=== PATIENT | male | born 1950 | race Caucasian/White ===

== ENCOUNTER 2016-12-04 13:10 | Inpatient (IN) ==
[2016-12-04] MEDS ORDERED: *HR* OxyCODONE Immed Rel 5 MG TABLET PO PRN (16:39)
[2016-12-04] MEDS ORDERED: Naloxone 0.4 MG/ML INJ IVP PRN (16:39)
[2016-12-04] MEDS ORDERED: Acetaminophen 325 MG TABLET PO PRN (16:39)
[2016-12-04] MEDS ORDERED: Stomatitis Mixture 5 ML UDC PO PRN (16:41)
--- NOTE | 2016-12-04 16:43 | Internal Med History&Physical ---
Date of Encounter: 12/04/16 Time of Encounter: 16:00 Assessment and Plan (1) Nausea and vomiting Current visit: Yes Status: Acute Likely secondary to chemotherapy. Continue supportive care with IV hydration, when necessary Zofran and Phenergan. Clear liquids as tolerated. Nutrition consult to initiate PEG feeds. CT abdomen/pelvis shows moderate amount of stool in the colon with no other acute findings. Patient is noted to have acute leukocytosis with bandemia, which is likely related to recent chemotherapy and Neulasta. Continue to monitor. Consulted oncology, follow-up recommendations. 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 Recent PET/CT showed invasion and spread into parapharyngeal space and other dictations. Currently on chemoradiation. Oncology consult. (3) Bronchiolitis Current visit: Yes Status: Acute CT abdomen shows bilateral bronchiolitis. Given his cough and leukocytosis, will start on IV Zithromax and. Patient does not appear septic. Does have a lactate level of 3.1. Continue IV hydration and trend lactate. Internal Medicine - H&P: HPI Chief complaint: Nausea, vomiting Admitted From: Emergency Dept Plans for Post Hospital Care: Home History of present illness: Mr. Cuello is a 66 year old male with history of left tonsillar squamous cell carcinoma with local invasion, presents with complaints of persistent nausea and vomiting. He was diagnosed with cancer about 6 months ago, follows with , and has been started on radiation, followed by chemotherapy, that was started on 12/02/16. He began having refractory nausea and nonbloody bilious emesis following this associated with poor oral intake. He did receive a PEG tube in September 2016, however he does not use his tube feeds regularly, especially not in the last 2-3 days. He has generalized weakness and fatigue and is noted to be very uncomfortable. Denies fever, chills, abdominal pain or diarrhea. He is noted to have intermittent dry cough, likely due to vomiting. Past Med Surg Social Fam HX - Past Medical History Medical history: arthritis, cancer (Squamous cell carcinoma of the left tonsil) Psychiatric history: no psych history - Past Surgical History Surgical History: other (Left tonsillectomy, PEG tube placement) - Social History Smoking Status: Former smoker (Quit smoking about 20 years ago) Smokeless Tobacco Status: No Alcohol use: none (Quit alcohol about 20 years ago) Drug use: marijuana Occupational status: disabled Current living situation: Home - Independent Activity Level: Independent ambulation Recent Out of Country Travel Within the Last 8 Weeks: No Exposure or Possible Exposure to Illness During Travel: No - Family History Mother Hx Family Cancer: Yes (Lung and cervical cancer) Internal Medicine - H&P: Meds Lactose-Reduced Food [Ensure Plus] 1 bottle PO TID #90 can 06/27/16 [Rx] Dicyclomine [Bentyl] 10 mg PO QID 08/02/16 [History] OxyCODONE Oral Soln [OxyCODONE ORAL SOLN] 30 mg PO Q6H PRN 08/02/16 [History] Promethazine [Phenergan] 12.5 mg PO Q6HR PRN 08/02/16 [History] Omeprazole [PriLOSEC] 20 mg PO DAILY #30 cap 08/20/16 [Rx] Stomatitis Mixture 5 ml PO Q4H PRN #240 mls 08/20/16 [Rx] Magic Mouthwash [Magic Mouthwash BLM] 10 ml PO QID PRN #240 ml 11/20/16 [Rx] Fentanyl [Duragesic] 1 each TD Q3D 11/28/16 [History] 3 Allergy/AdvReac Type Severity Reaction Status Date / Time codeine AdvReac Rash Verified 11/28/16 08:22 phenylbutazone AdvReac Rash Verified 11/28/16 08:22 [From Butazolidin] All Systems PM: A 10-system review of systems was performed and is negative for pertinent findings except as documented above in the HPI. - Constitutional Constitutional: fatigue, weakness, no chills, no fever(s), no night sweats - EENT Eyes: no change in vision, no discharge, no pain, no photophobia Ears: no ear discharge, no ear pain, no tinnitus Nose, mouth and throat: no dysphagia, no nasal discharge, no neck pain, no sore throat - Cardiovascular Cardiovascular ROS IM: no chest pain, no diaphoresis, no dyspnea, no lightheadedness, no palpitations, no syncope - Respiratory Respiratory: cough - Gastrointestinal Gastrointestinal: nausea, vomiting - Musculoskeletal Musculoskeletal ROS IM: no numbness, no tingling - Integumentary Integumentary IM: no rash, no unusual bruising - Neurological Neurological ROS: no confusion, no convulsions, no focal weakness, no numbness, no tingling, no tremor(s) - Hematologic/Lymphatic Hematologic/Lymphatic: no easy bruising - Constitutional Vitals: Temp Pulse Resp BP Pulse Ox 98.1 F 62 16 135/69 95 12/04/16 15:05 12/04/16 15:05 12/04/16 15:05 12/04/16 15:05 12/04/16 15:05 General appearance: Present: cachectic, mild distress, A&O X 3, loss of weight, answers questions appropriately - Respiratory Respiratory exam: Present: CTAB. Absent: accessory muscle use, rales, rhonchi, wheezes - Cardiovascular Cardiovascular exam: Present: RRR, +S1, +S2. Absent: diastolic murmur, gallop, rubs, systolic murmur - GI/Abdominal GI/Abdominal exam: Present: normal bowel sounds, soft (Scaphoid abdomen with PEG tube in place), no peritoneal signs. Absent: distended, tenderness - Extremities Exam Extremities exam: Present: full ROM, warm, radial pulses palpable and symmetrical. Absent: calf tenderness, cyanotic, pedal edema - Neurological Exam Neurological exam: Present: CN II-XII intact, oriented X3, no focal deficits. Absent: pronater drift, facial droop, speech deficit - Skin Skin exam: Present: dry, intact
[2016-12-04] MEDS ORDERED: *HR* FentaNYL PATCH 50 MCG PATCH TD SCH (17:00)
[2016-12-04] MEDS ORDERED: D5% in 0.9% NACL 1,000 ML IVC SCH (17:30)
[2016-12-04] MEDS: Azithromycin 500 MG in D5% in Water 250 ML IVPB SCH (17:58)
[2016-12-04] MEDS ORDERED: NON-FORMULARY MEDICATION 1 EACH EACH (Lactose-Reduced Food [Ensure Plus] 1 BOTTLE) PO SCH (21:00)
[2016-12-04] MEDS: *HR* Heparin 5,000 UNIT/ML VIAL SQ SCH (21:41)
[2016-12-04] MEDS: Ondansetron 4 MG/2 ML VIAL IVP PRN (21:41)
[2016-12-04] MEDS: *HR* Morphine 2 MG/ML SYRINGE IVP PRN (22:10)
[2016-12-04] MEDS: Magic Mouthwash 10 ML UD Cup PO PRN (23:37)
[2016-12-05 05:11] LABS: Mean Platelet Volume 10.9 fL (9.4-12.4)
[2016-12-05 05:13] LABS: Hematocrit 38.9 % (37.5-50.1); Hemoglobin 12.6 g/dL (12.9-16.9); Mean Corpuscular HGB Conc 32.4 g/dL (31.6-35.5); Mean Corpuscular Hemoglobin 27.9 pg (28.0-33.3); Mean Corpuscular Volume 86.1 fL (83.0-100.0); Platelet Count 249 K/mcL (140-400); Red Blood Count 4.52 M/mcL (4.19-5.50); Red Cell Distribution Width 12.9 % (11.5-14.5)
[2016-12-05 05:24] LABS: BUN/Creatinine Ratio 20 (6-26); Blood Urea Nitrogen 17 mg/dL (8-26); Calcium 8.9 mg/dL (8.6-10.8); Carbon Dioxide 29 mEq/L (19-29); Chloride 95 mEq/L (98-109); Glucose 78 mg/dL (70-99); Magnesium 1.8 mg/dL (1.6-2.6); Osmolality,Calculated 282 (280-300); Phosphorous 2.4 mg/dL (2.3-4.7); Potassium 2.7 mEq/L (3.5-4.5); Sodium 136 mEq/L (136-145); eGFR For African Americans > 60 (> 60); eGFR For Non-African Americans > 60 (> 60)
[2016-12-05 06:01] LABS: Monocytes # 1.9 K/mcL (0.0-1.3); Neutrophils # 45.7 K/mcL (1.6-8.9); Platelet Estimate Normal (Normal)
[2016-12-05] MEDS: *HR* Heparin 5,000 UNIT/ML VIAL SQ SCH ×3 (07:16→22:28)
[2016-12-05] MEDS: *HR* Morphine 2 MG/ML SYRINGE IVP PRN ×2 (07:18→11:36)
[2016-12-05] MEDS: Ondansetron 4 MG/2 ML VIAL IVP PRN ×2 (07:18→16:42)
[2016-12-05] MEDS ORDERED: Potassium Chloride 40 MEQ, Lidocaine 1% 2 ML in D5% in Water 500 ML IVPB ONE (08:08)
[2016-12-05] MEDS ORDERED: Potassium Chloride Elixir 20 MEQ/15 ML UDC GTUBE ONE (08:10)
--- NOTE | 2016-12-05 08:52 | Internal Med Progress Note ---
<Junior Cesar - Last Filed: 12/05/16 15:00> Date of Encounter: 12/05/16 Time of Encounter: 08:50 - Assessment and plan (1) Nausea and vomiting Current Visit: Yes Status: Acute Assessment and plan: Improving with medications. Likely secondary to chemotherapy - first dose on CT abd/pelvis - moderate amount of stool, but no acute findings Leukocystosis with bandemia - afebrile, normotensive. Likely related to chemotherapy, but will continue to monitor PEG in place, but he reports he has not been using it much Plan: IV hydration, reglan, zofran Oncology consulted - appreciate recommendations Nutrition consulted - appreciate recommendations Qualifiers: Vomiting type: unspecified Vomiting Intractability: intractable Qualified Code(s): R11.2 - Nausea with vomiting, unspecified (2) 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 But no metastasis to the chest First dose of chemotherapy 12/02/16 - cisplatin 100 mg per meter square day 1, 22, 43. Neulasta day 2 Oncology consulted (3) Bronchiolitis Current Visit: Yes Status: Acute Assessment and plan: CT at [place]: infectious bronchiolitis. Dry cough and leukocytosis - continue Zithromax. Afebrile, normotensive (4) Hypokalemia Current Visit: Yes Status: Acute Assessment and plan: K 2.7, Mg 1.8 - ECG from 12/04/16 showed no U waves or flattened T waves. No palpitations. Replace K and monitor. - Subjective Interval history: Pt reports that does not feel well, and feels very fatigued and weak. Continued N/V, but improved with medications. Dry cough during examination. Denies fever, chills, chest pain, dyspnea, abdominal pain, diarrhea, constipation, dysuria, or leg pain/edema. - Constitutional Vitals: Temp Pulse Resp BP Pulse Ox 98.2 F 48 12 134/63 92 12/05/16 07:29 12/05/16 07:29 12/05/16 07:29 12/05/16 07:29 12/05/16 07:29 General appearance: Present: cachectic, mild distress, A&O X 3, loss of weight, answers questions appropriately - Head Head exam: Present: atraumatic, normocephalic - Eye Eye exam: Present: conjuntiva pink, sclera anicteric - ENT ENT exam: Present: mucous membranes moist - Neck Neck exam general surgery: Present: supple, trachea midline - Respiratory Respiratory exam: Present: CTAB. Absent: rales, rhonchi, wheezes Additional comments: Dry cough - Cardiovascular Cardiovascular exam: Present: RRR, +S1, +S2. Absent: diastolic murmur, systolic murmur - GI/Abdominal GI/Abdominal exam: Present: normal bowel sounds, soft, no peritoneal signs. Absent: distended, tenderness Additional comments: PEG in place - clean, dry, no erythema - Extremities Exam Extremities exam: Present: warm, radial pulses palpable and symmetrical. Absent : calf tenderness, pedal edema - Neurological Exam Neurological exam: Present: CN II-XII intact, oriented X3, no focal deficits. Absent: facial droop, speech deficit - Skin Skin exam: Present: dry, intact Internal Medicine: Result - Labs CBC & Chem 7: 12/05/16 03:40 12/05/16 12:32 Labs: Short CBC 12/05/16 Range/Units 03:40 WBC 48.6 H* D (4.3-11.1) K/mcL Hgb 12.6 L (12.9-16.9) g/dL Hct 38.9 (37.5-50.1) % Plt Count 249 (140-400) K/mcL Neutrophils # 45.7 H (1.6-8.9) K/mcL BMP 12/05/16 03:40 Sodium 136 Potassium 2.7 L Chloride 95 L Carbon Dioxide 29 BUN 17 Creatinine 0.84 Glucose 78 Calcium 8.9 Consult Discharge Plan - Plan [facility]errals: [facility]Primary Care Provider[facility] - <Johnnie Rodriges - Last Filed: 12/05/16 18:11> Date of Encounter: 12/05/16 - Constitutional Vitals: Temp Pulse Resp BP Pulse Ox 98.0 F 86 14 113/87 93 12/05/16 15:23 12/05/16 15:23 12/05/16 15:23 12/05/16 15:23 12/05/16 15:23 Internal Medicine: Result - Labs CBC & Chem 7: 12/05/16 03:40 12/05/16 12:32 Labs: Short CBC 12/05/16 Range/Units 03:40 WBC 48.6 H* D (4.3-11.1) K/mcL Hgb 12.6 L (12.9-16.9) g/dL Hct 38.9 (37.5-50.1) % Plt Count 249 (140-400) K/mcL Neutrophils # 45.7 H (1.6-8.9) K/mcL BMP 12/05/16 12/05/16 03:40 12:32 Sodium 136 Potassium 2.7 L 3.4 L Chloride 95 L Carbon Dioxide 29 BUN 17 Creatinine 0.84 Glucose 78 Calcium 8.9 - Attending Attestation I examined this patient and my medical decision-making was reviewed with the Resident Physician. I agree with the documented findings, disposition and treatment plan as described except to the extent set forth below.
[2016-12-05] MEDS: Pantoprazole 40 MG VIAL IVP SCH (09:48)
[2016-12-05] MEDS ORDERED: OxyCODONE CONC 5 MG/0.25 ML ORAL.SYG PO PRN (13:59)
[2016-12-05] MEDS: *HR* FentaNYL PATCH 25 MCG PATCH TD SCH (16:41)
[2016-12-05] MEDS: OxyCODONE CONC 5 MG/0.25 ML ORAL.SYG GTUBE PRN (17:03)
[2016-12-05] MEDS: Azithromycin 500 MG in D5% in Water 250 ML IVPB SCH (18:28)
[2016-12-05] MEDS: Magic Mouthwash 10 ML UD Cup PO PRN (18:30)
[2016-12-05] MEDS ORDERED: *HR* Promethazine 25 MG/ML VIAL IVP ONE (19:16)
[2016-12-05] MEDS ORDERED: Metoclopramide 10 MG/2 ML VIAL IVP ONE (23:11)
[2016-12-05] MEDS: *HR* HYDROmorphone (PF) 1 MG/ML SYRINGE IVP PRN (23:33)
[2016-12-06 04:23] LABS: BUN/Creatinine Ratio 21 (6-26); Blood Urea Nitrogen 16 mg/dL (8-26); Calcium 8.3 mg/dL (8.6-10.8); Carbon Dioxide 30 mEq/L (19-29); Chloride 96 mEq/L (98-109); Glucose 84 mg/dL (70-99); Osmolality,Calculated 276 (280-300); Potassium 2.9 mEq/L (3.5-4.5); Sodium 133 mEq/L (136-145); eGFR For African Americans > 60 (> 60); eGFR For Non-African Americans > 60 (> 60)
[2016-12-06 04:41] LABS: Hemoglobin 12.3 g/dL (12.9-16.9); Mean Corpuscular Volume 83.6 fL (83.0-100.0)
[2016-12-06 04:43] LABS: Hematocrit 36.7 % (37.5-50.1); Mean Corpuscular HGB Conc 33.5 g/dL (31.6-35.5); Mean Platelet Volume 10.9 fL (9.4-12.4); Platelet Count 213 K/mcL (140-400); Red Blood Count 4.39 M/mcL (4.19-5.50); Red Cell Distribution Width 12.8 % (11.5-14.5)
[2016-12-06] MEDS: *HR* HYDROmorphone (PF) 1 MG/ML SYRINGE IVP PRN ×5 (05:21→23:47)
[2016-12-06] MEDS: *HR* Heparin 5,000 UNIT/ML VIAL SQ SCH ×3 (05:22→21:25)
[2016-12-06] MEDS: Ondansetron 4 MG/2 ML VIAL IVP PRN (05:22)
[2016-12-06] MEDS ORDERED: Potassium Chloride 40 MEQ, Lidocaine 1% 2 ML in D5% in Water 500 ML IVPB ONE (06:48)
[2016-12-06] MEDS ORDERED: Potassium Chloride Elixir 20 MEQ/15 ML UDC GTUBE ONE (06:49)
[2016-12-06] MEDS: OxyCODONE CONC 5 MG/0.25 ML ORAL.SYG GTUBE PRN (08:42)
[2016-12-06] MEDS: Magic Mouthwash 10 ML UD Cup PO PRN (08:56)
--- NOTE | 2016-12-06 10:13 | Internal Med Progress Note ---
<Junior Cesar - Last Filed: 12/06/16 10:24> Date of Encounter: 12/06/16 Time of Encounter: 10:11 - Assessment and plan (1) Nausea and vomiting Current Visit: Yes Status: Acute Assessment and plan: Improving with medications - still some N/V overnight. Likely secondary to chemotherapy - first dose on 12/02/16 CT abd/pelvis - moderate amount of stool, but no acute findings Leukocystosis with bandemia - afebrile, normotensive. Likely related to chemotherapy, but will continue to monitor PEG in place Plan: IV hydration, reglan, zofran, add compazine Oncology consulted - appreciate recommendations Nutrition consulted - appreciate recommendations - restart tube feedings as tolerated Qualifiers: Vomiting type: unspecified Vomiting Intractability: intractable Qualified Code(s): R11.2 - Nausea with vomiting, unspecified (2) 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 But no metastasis to the chest First dose of chemotherapy 12/02/16 - cisplatin 100 mg per meter square day 1, 22, 43. Neulasta day 2 Oncology consulted (3) Bronchiolitis Current Visit: Yes Status: Acute Assessment and plan: CT at [place]: infectious bronchiolitis. Dry cough and leukocytosis - continue Zithromax. Afebrile, normotensive (4) Hypokalemia Current Visit: Yes Status: Acute Assessment and plan: K 2.9 this AM. Mag 1.8 yesterday, recheck pending this AM - ECG from 12/04/16 showed no U waves or flattened T waves. No palpitations. Replace K and monitor. - Subjective Interval history: Pt reports that does not feel well but improving compared to yesterday. Still feels very fatigued and weak. N/V continues mild improvement. Denies fever, chills, chest pain, dyspnea, abdominal pain, diarrhea, constipation, dysuria, or leg pain/edema. - Constitutional Vitals: Temp Pulse Resp BP Pulse Ox 98.4 F 45 16 136/63 98 12/06/16 08:00 12/06/16 08:00 12/06/16 08:00 12/06/16 08:00 12/06/16 08:00 General appearance: Present: cachectic, mild distress, A&O X 3, loss of weight, answers questions appropriately - Head Head exam: Present: atraumatic, normocephalic - Eye Eye exam: Present: conjuntiva pink, sclera anicteric - ENT ENT exam: Present: mucous membranes moist - Neck Neck exam general surgery: Present: supple, trachea midline. Absent: lymphadenopathy - Respiratory Respiratory exam: Present: CTAB. Absent: accessory muscle use, rales, rhonchi, wheezes - Cardiovascular Cardiovascular exam: Present: RRR, +S1, +S2. Absent: diastolic murmur, systolic murmur - GI/Abdominal GI/Abdominal exam: Present: normal bowel sounds, soft, no peritoneal signs. Absent: distended, tenderness Additional comments: PEG tube in place - clean, dry, no erythema - Extremities Exam Extremities exam: Present: warm, radial pulses palpable and symmetrical. Absent : calf tenderness, cyanotic, pedal edema - Neurological Exam Neurological exam: Present: CN II-XII intact, oriented X3, no focal deficits. Absent: facial droop, speech deficit - Skin Skin exam: Present: dry, intact Internal Medicine: Result - Labs CBC & Chem 7: 12/06/16 03:26 12/06/16 03:26 Labs: Short CBC 12/06/16 Range/Units 03:26 WBC 46.4 H* (4.3-11.1) K/mcL Hgb 12.3 L (12.9-16.9) g/dL Hct 36.7 L (37.5-50.1) % Plt Count 213 (140-400) K/mcL BMP 12/05/16 12/06/16 12:32 03:26 Sodium 133 L Potassium 3.4 L 2.9 L Chloride 96 L Carbon Dioxide 30 H BUN 16 Creatinine 0.76 Glucose 84 Calcium 8.3 L Consult Discharge Plan - Plan Referrals: [facility] [Primary Care Provider] - <Johnnie Rodriges - Last Filed: 12/06/16 17:37> Date of Encounter: 12/06/16 - Constitutional Vitals: Temp Pulse Resp BP Pulse Ox 97.9 F 46 18 113/62 98 12/06/16 15:27 12/06/16 15:27 12/06/16 15:27 12/06/16 15:27 12/06/16 15:27 Internal Medicine: Result - Labs CBC & Chem 7: 12/06/16 03:26 12/06/16 13:52 Labs: Short CBC 12/06/16 Range/Units 03:26 WBC 46.4 H* (4.3-11.1) K/mcL Hgb 12.3 L (12.9-16.9) g/dL Hct 36.7 L (37.5-50.1) % Plt Count 213 (140-400) K/mcL BMP 12/06/16 12/06/16 03:26 13:52 Sodium 133 L Potassium 2.9 L 3.6 Chloride 96 L Carbon Dioxide 30 H BUN 16 Creatinine 0.76 Glucose 84 Calcium 8.3 L - Attending Attestation I examined this patient and my medical decision-making was reviewed with the Resident Physician. I agree with the documented findings, disposition and treatment plan as described except to the extent set forth below.
[2016-12-06] MEDS: Pantoprazole 40 MG VIAL IVP SCH (11:16)
[2016-12-06] MEDS: Prochlorperazine 10 MG/2 ML VIAL IVP PRN (11:17)
[2016-12-06] MEDS: *HR* OxyCODONE Immed Rel 5 MG TABLET GTUBE PRN ×3 (13:07→21:24)
[2016-12-06] MEDS: *HR* OxyCODONE Immed Rel 15 MG TABLET GTUBE PRN ×3 (13:07→21:24)
[2016-12-06 16:42] LABS: Magnesium 1.7 mg/dL (1.6-2.6)
[2016-12-06] MEDS: Azithromycin 500 MG in D5% in Water 250 ML IVPB SCH (17:18)
[2016-12-07] MEDS: *HR* OxyCODONE Immed Rel 15 MG TABLET GTUBE PRN ×5 (01:30→20:05)
[2016-12-07] MEDS: *HR* OxyCODONE Immed Rel 5 MG TABLET GTUBE PRN ×5 (01:30→20:04)
[2016-12-07] MEDS: *HR* HYDROmorphone (PF) 1 MG/ML SYRINGE IVP PRN ×5 (03:54→21:26)
[2016-12-07] MEDS: *HR* Heparin 5,000 UNIT/ML VIAL SQ SCH ×3 (05:43→20:18)
[2016-12-07 07:13] LABS: BUN/Creatinine Ratio 17 (6-26); Blood Urea Nitrogen 13 mg/dL (8-26); Calcium 8.4 mg/dL (8.6-10.8); Carbon Dioxide 35 mEq/L (19-29); Chloride 93 mEq/L (98-109); Glucose 97 mg/dL (70-99); Osmolality,Calculated 276 (280-300); Potassium 3.3 mEq/L (3.5-4.5); Sodium 133 mEq/L (136-145); eGFR For African Americans > 60 (> 60); eGFR For Non-African Americans > 60 (> 60)
[2016-12-07 07:50] LABS: Mean Platelet Volume 11.1 fL (9.4-12.4); Red Cell Distribution Width 12.8 % (11.5-14.5)
[2016-12-07 07:52] LABS: Hematocrit 39.5 % (37.5-50.1); Mean Corpuscular HGB Conc 32.9 g/dL (31.6-35.5); Mean Corpuscular Hemoglobin 27.7 pg (28.0-33.3); Platelet Count 225 K/mcL (140-400)
[2016-12-07] MEDS: Ondansetron 4 MG/2 ML VIAL IVP PRN (08:58)
--- NOTE | 2016-12-07 10:08 | Oncology Inp Consult Note ---
Date of Encounter: 12/07/16 Time of Encounter: : Assessment and Plan (1) Squamous cell carcinoma of left tonsil Status: Chronic Assessment and plan: -Currently on day 6, on concurrent chemo radiation since 12/02/16 with cisplatin 100 mg/m2 on day 1,22,and 43 with neulasta on day 2. We discussed that the intent of his chemotherapy is curative ( in despite of being stage IV. Admitted for symptom management: nausea/vomiting. (2) Nausea and vomiting Status: Acute Assessment and plan: -More likely related to recent chemo, in view of high emetic potential of cisplatin. - Reports significant improvement with the current anti emetic regimen, but today in AM had exacerbation of nausea/vomiting. Reports better response to phenergan to zofran; received zofran at 8:58 AM, but minimal not significant improvement. I''d suggest to use phenergan as first line PRN anti emetic, and use zofran as a back up. - Resume PEG tube nutrition once nausea/vomiting has been controlled. Qualifiers: Vomiting type: unspecified Vomiting Intractability: intractable Qualified Code(s): R11.2 - Nausea with vomiting, unspecified (3) Bronchiolitis Status: Acute Assessment and plan: -Being managed by primary team with zithromax. - Leucocytosis and bandemia improving. WBC count today down to 26K. - Data of Consult Requesting Physician: Johnnie Rodriges MD Primary Care Provider: PCP [place] - Consult Narrative Reason for consult: management of stage IV head and neck cancer History of present illness: Mr. Cuello is a 66 year old male with history of moderately differentiated squamous cell carcinoma of the left tonsill, admittd due to nausea and vomiting. Mr. Cuello was started on concurrent chemoradiation on Dec 02, 2016. His staging work up was consistent with stage IV left tonsill carcinoma. He was started on Dec 02 on cispplatin 100 mg with plans to repeat as per protocol ( days 1, 22,43, with neulasta on day 2). His PET scan from 06/26 showed metabolic activity with level IIA, and level IIB cervical lymph nodes. A follow up PET on 11/20/16 showed local extension from tonsillar area and to parapharyngeal space and tehn extension into the left neck as well to more lymph nodes, but not metastatic disease in the chest. He reports that his nausea and vomiting improved after administration of IV anti emetics, being absent yesterday, but today AM he experienced recurrent nausea, vomiting, that did not respond to zofran. He is awaiting to receive phenergan that he reports has worked better in the past to control his symptoms. Denies abdominal pain, constipation in despite of CT abdomen findings. Denies fever, chills, pain. Past Med Surg Social Fam HX - Past Medical History Medical history: arthritis, cancer (Squamous cell carcinoma of the left tonsil) Psychiatric history: no psych history - Past Surgical History Surgical History: other (Left tonsillectomy, PEG tube placement) - Social History Smoking Status: Former smoker (Quit smoking about 20 years ago) Smokeless Tobacco Status: No Alcohol use: none (Quit alcohol about 20 years ago) Drug use: marijuana - Family History Mother Hx Family Cancer: Yes (Lung and cervical cancer) Medications and Allergies Lactose-Reduced Food [Ensure Plus] 1 bottle PO TID #90 can 06/27/16 [Rx] Dicyclomine [Bentyl] 10 mg PO QID 08/02/16 [History] OxyCODONE Oral Soln [OxyCODONE ORAL SOLN] 50 mg PO Q4H PRN 08/02/16 [History] Promethazine [Phenergan] 12.5 mg PO Q6HR PRN 08/02/16 [History] Omeprazole [PriLOSEC] 20 mg PO DAILY #30 cap 08/20/16 [Rx] Stomatitis Mixture 5 ml PO Q4H PRN #240 mls 08/20/16 [Rx] Fentanyl [Duragesic] 1 each TD Q3D 11/28/16 [History] FentaNYL PATCH [Duragesic] 25 mcg TD Q72H 12/05/16 [History] 3 Allergy/AdvReac Type Severity Reaction Status Date / Time codeine AdvReac Rash Verified 11/28/16 08:22 phenylbutazone AdvReac Rash Verified 11/28/16 08:22 [From Butazolidin] Constitutional: Present: fatigue. Absent: fever(s) Eyes: Absent: diplopia, discharge Cardiovascular: Absent: chest pain at rest, chest pain with activity Gastrointestinal: Absent: abdominal pain, dysphagia, heartburn Musculoskeletal: Absent: joint swelling, myalgias Neurological: Absent: behavioral changes, dizziness Psychiatric: Absent: confusion, visual hallucinations Hematologic/Lymphatic: Present: as per HPI Oncology - Exam - Constitutional Vitals: Temp Pulse Resp BP Pulse Ox 97.9 F 56 16 122/75 97 12/07/16 07:19 12/07/16 07:19 12/07/16 07:19 12/07/16 07:19 12/07/16 07:19 - Head Head exam: Present: normal inspection, normocephalic - Eye Eye exam: Present: PERRL. Absent: periorbital swelling - ENT ENT exam: Present: normal oropharynx - Neck Neck exam: Absent: tenderness, thyromegaly - Respiratory Respiratory exam: Present: CTAB. Absent: prolonged expiratory phase, rales - Cardiovascular Cardiovascular exam: Present: RRR, +S1. Absent: systolic murmur - GI/Abdominal GI/Abdominal exam: Present: normal bowel sounds, soft (PEG tube area looks intact.). Absent: organomegaly, pulsatile mass - Extremities Exam Extremities exam: Present: normal inspection. Absent: pedal edema - Back Exam Back exam: Absent: paraspinal tenderness - Neurological Exam Neurological exam: Present: alert, oriented X3 - Psychiatric Psychiatric exam: Present: normal affect, normal mood - Skin Skin exam: Present: normal color Oncology - Results Labs: Short CBC 12/07/16 Range/Units 06:50 WBC 26.1 H (4.3-11.1) K/mcL Hgb 13.0 (12.9-16.9) g/dL Hct 39.5 (37.5-50.1) % Plt Count 225 (140-400) K/mcL BMP 12/06/16 12/07/16 13:52 06:50 Sodium 133 L Potassium 3.6 3.3 L Chloride 93 L Carbon Dioxide 35 H BUN 13 Creatinine 0.75 Glucose 97 Calcium 8.4 L Consult Discharge Plan - Plan [facility]errals: [facility] [Primary Care Provider] -
[2016-12-07] MEDS: *HR* Promethazine 25 MG/ML VIAL IVP PRN ×2 (10:22→16:52)
[2016-12-07] MEDS: Pantoprazole 40 MG VIAL IVP SCH (10:26)
[2016-12-07] MEDS: Prochlorperazine 10 MG/2 ML VIAL IVP PRN ×2 (12:34→20:04)
[2016-12-07] MEDS: Azithromycin 500 MG in D5% in Water 250 ML IVPB SCH (17:00)
--- NOTE | 2016-12-07 17:52 | Internal Med Progress Note ---
Date of Encounter: 12/07/16 Time of Encounter: 17:50 - Assessment and plan (1) Nausea and vomiting Current Visit: Yes Status: Acute Assessment and plan: Improving with medications - still some N/V overnight. Likely secondary to chemotherapy - first dose on 12/02/16 CT abd/pelvis - moderate amount of stool, but no acute findings Leukocystosis with bandemia - afebrile, normotensive. Likely related to chemotherapy, but will continue to monitor PEG in place Plan: IV hydration, reglan, zofran, add compazine Oncology consulted - appreciate recommendations Nutrition consulted - appreciate recommendations - restart tube feedings as tolerated 12/07/2016. Patient still has occasional nausea and vomiting. Patient is getting Zofran around the clock. Oncology on the board. We will follow the recommendations from oncology. 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 But no metastasis to the chest First dose of chemotherapy 12/02/16 - cisplatin 100 mg per meter square day 1, 22, 43. Neulasta day 2 Oncology consulted 12/07/2016 Oncology on the board. We will follow the recommendation from oncology. (3) Hypokalemia Current Visit: Yes Status: Acute Assessment and plan: K 2.9 this AM. Mag 1.8 yesterday, recheck pending this AM - ECG from 12/04/16 showed no U waves or flattened T waves. No palpitations. Replace K and monitor. 12/07/2016. Patient's potassium is 3.3. Presently on replacement therapy. We will recheck labs tomorrow. - Subjective Interval history: Patient seen and examined. Chart reviewed. Patient is comfortably lying in bed. Patient still has occasional nausea and vomiting. Patient is on appropriate medication. - Constitutional Vitals: Temp Pulse Resp BP Pulse Ox 99.4 F 51 12 132/71 95 12/07/16 16:24 12/07/16 15:52 12/07/16 15:52 12/07/16 15:52 12/07/16 16:24 General appearance: Present: cachectic, mild distress, A&O X 3, loss of weight, answers questions appropriately - Head Head exam: Present: atraumatic, normocephalic - Eye Eye exam: Present: PERRL, conjuntiva pink, sclera anicteric Pupils: Present: PERRL - Neck Neck exam general surgery: Present: supple, trachea midline. Absent: lymphadenopathy - Respiratory Respiratory exam: Present: CTAB. Absent: accessory muscle use, rales, rhonchi, wheezes - Cardiovascular Cardiovascular exam: Present: RRR, +S1, +S2. Absent: diastolic murmur, gallop, rubs, systolic murmur - GI/Abdominal GI/Abdominal exam: Present: normal bowel sounds, soft, no peritoneal signs. Absent: distended, tenderness - Extremities Exam Extremities exam: Present: warm, radial pulses palpable and symmetrical. Absent : calf tenderness, cyanotic, pedal edema - Neurological Exam Neurological exam: Present: CN II-XII intact, oriented X3, no focal deficits. Absent: pronater drift, facial droop, speech deficit - Skin Skin exam: Present: dry, intact Internal Medicine: Result - Labs CBC & Chem 7: 12/07/16 06:50 12/07/16 06:50 Labs: Short CBC 12/07/16 Range/Units 06:50 WBC 26.1 H (4.3-11.1) K/mcL Hgb 13.0 (12.9-16.9) g/dL Hct 39.5 (37.5-50.1) % Plt Count 225 (140-400) K/mcL [facility] 12/07/16 06:50 Sodium 133 L Potassium 3.3 L Chloride 93 L Carbon Dioxide 35 H BUN 13 Creatinine 0.75 Glucose 97 Calcium 8.4 L Consult Discharge Plan - Plan [facility]errals: [facility] [Primary Care Provider] -
[2016-12-08] MEDS: *HR* HYDROmorphone (PF) 1 MG/ML SYRINGE IVP PRN ×5 (01:46→21:13)
[2016-12-08 03:22] LABS: Alanine Aminotransferase 16 Units/L (0-55); Albumin 2.6 g/dL (3.5-5.0); Albumin/Globulin Ratio 0.9 (1.1-2.2); Alkaline Phosphatase 132 Units/L (38-126); Aspartate Amino Transferase 19 Units/L (5-34); BUN/Creatinine Ratio 15 (6-26); Bilirubin,Total 0.5 mg/dL (0.2-1.2); Blood Urea Nitrogen 11 mg/dL (8-26); Calcium 8.3 mg/dL (8.6-10.8); Carbon Dioxide 35 mEq/L (19-29); Chloride 96 mEq/L (98-109); Globulin 2.9 g/dL (2.4-3.5); Glucose 90 mg/dL (70-99); Osmolality,Calculated 283 (280-300); Sodium 137 mEq/L (136-145); Total Protein 5.5 g/dL (6.0-8.3); eGFR For African Americans > 60 (> 60); eGFR For Non-African Americans > 60 (> 60)
[2016-12-08 03:29] LABS: Basophils # 0.1 K/mcL (0.0-0.2); Basophils % 0.5 %; Eosinophils # 0.1 K/mcL (0.0-0.6); Eosinophils % 0.3 %; Hematocrit 34.5 % (37.5-50.1); Hemoglobin 11.6 g/dL (12.9-16.9); Lymphocytes # 1.1 K/mcL (0.6-4.6); Lymphocytes % 4.9 %; Mean Corpuscular HGB Conc 33.6 g/dL (31.6-35.5); Mean Corpuscular Hemoglobin 28.2 pg (28.0-33.3); Mean Corpuscular Volume 83.9 fL (83.0-100.0); Mean Platelet Volume 10.6 fL (9.4-12.4); Monocytes # 1.2 K/mcL (0.0-1.3); Monocytes % 5.5 %; Neutrophils # 19.1 K/mcL (1.6-8.9); Platelet Count 165 K/mcL (140-400); Red Blood Count 4.11 M/mcL (4.19-5.50); Red Cell Distribution Width 12.8 % (11.5-14.5); Segmented Neutrophils % 87.8 %
[2016-12-08 04:21] LABS: Platelet Estimate Normal (Normal)
[2016-12-08] MEDS: *HR* Heparin 5,000 UNIT/ML VIAL SQ SCH ×3 (05:23→21:26)
[2016-12-08] MEDS: Pantoprazole 40 MG VIAL IVP SCH (08:40)
[2016-12-08] MEDS: *HR* OxyCODONE Immed Rel 15 MG TABLET GTUBE PRN ×4 (10:55→23:02)
[2016-12-08] MEDS: Prochlorperazine 10 MG/2 ML VIAL IVP PRN ×2 (10:55→18:52)
[2016-12-08] MEDS: *HR* OxyCODONE Immed Rel 5 MG TABLET GTUBE PRN ×4 (10:56→23:03)
[2016-12-08] MEDS ORDERED: Potassium Chloride Elixir 20 MEQ/15 ML UDC GTUBE ONE (11:26)
--- NOTE | 2016-12-08 11:29 | Internal Med Progress Note ---
Date of Encounter: 12/08/16 Time of Encounter: 11:27 - Assessment and plan (1) Nausea and vomiting Current Visit: Yes Status: Acute Assessment and plan: Improving with medications - still some N/V overnight. Likely secondary to chemotherapy - first dose on 12/02/16 CT abd/pelvis - moderate amount of stool, but no acute findings Leukocystosis with bandemia - afebrile, normotensive. Likely related to chemotherapy, but will continue to monitor PEG in place Plan: IV hydration, reglan, zofran, add compazine Oncology consulted - appreciate recommendations Nutrition consulted - appreciate recommendations - restart tube feedings as tolerated 12/07/2016. Patient still has occasional nausea and vomiting. Patient is getting Zofran around the clock. Oncology on the board. We will follow the recommendations from oncology. 12/08/2016 Patient does not have any nausea or vomiting today. Patient was in a lot of pain last night. Patient claims that his pain medication schedule was changed. I reviewed myself medication orders/MAR and I did not see any change in the medication schedule. Informed patient all above. We will gave him all his pain medications and a regular interval. 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 But no metastasis to the chest First dose of chemotherapy 12/02/16 - cisplatin 100 mg per meter square day 1, 22, 43. Neulasta day 2 Oncology consulted 12/07/2016 Oncology on the board. We will follow the recommendation from oncology. (3) Hypokalemia Current Visit: Yes Status: Acute Assessment and plan: K 2.9 this AM. Mag 1.8 yesterday, recheck pending this AM - ECG from 12/04/16 showed no U waves or flattened T waves. No palpitations. Replace K and monitor. 12/07/2016. Patient's potassium is 3.3. Presently on replacement therapy. We will recheck labs tomorrow. 12/08/2016 Potassium replacement why PEG tube We will get magnesium/CMP tomorrow - Subjective Interval history: Patient seen and examined. Chart reviewed. Patient is comfortably lying in bed. Patient still has occasional nausea and vomiting. Patient is on appropriate medication. 12/08/2016 Patient seen and examined. Chart reviewed. Patient is comfortably lying in the bed. Patient claims that he was in a lot of pain last night. Patient's pain medication schedule was noted and there was no change in that. - Constitutional Vitals: Temp Pulse Resp BP Pulse Ox 98.7 F 56 18 115/59 95 12/08/16 09:00 12/08/16 09:00 12/08/16 09:00 12/08/16 09:00 12/08/16 09:00 General appearance: Present: cachectic, mild distress, A&O X 3, loss of weight, answers questions appropriately - Head Head exam: Present: atraumatic, normocephalic - Eye Eye exam: Present: PERRL, conjuntiva pink, sclera anicteric Pupils: Present: PERRL - Neck Neck exam general surgery: Present: supple, trachea midline. Absent: lymphadenopathy - Respiratory Respiratory exam: Present: CTAB. Absent: accessory muscle use, rales, rhonchi, wheezes - Cardiovascular Cardiovascular exam: Present: RRR, +S1, +S2. Absent: diastolic murmur, gallop, rubs, systolic murmur - GI/Abdominal GI/Abdominal exam: Present: normal bowel sounds, soft, no peritoneal signs. Absent: distended, tenderness - Extremities Exam Extremities exam: Present: warm, radial pulses palpable and symmetrical. Absent : calf tenderness, cyanotic, pedal edema - Neurological Exam Neurological exam: Present: CN II-XII intact, oriented X3, no focal deficits. Absent: pronater drift, facial droop, speech deficit - Skin Skin exam: Present: dry, intact Internal Medicine: Result - Labs CBC & Chem 7: 12/08/16 02:32 12/08/16 02:32 Labs: Short CBC 12/08/16 Range/Units 02:32 WBC 21.8 H (4.3-11.1) K/mcL Hgb 11.6 L (12.9-16.9) g/dL Hct 34.5 L (37.5-50.1) % Plt Count 165 (140-400) K/mcL Neutrophils # 19.1 H (1.6-8.9) K/mcL BMP 12/08/16 02:32 Sodium 137 Potassium 3.0 L Chloride 96 L Carbon Dioxide 35 H BUN 11 Creatinine 0.71 L Glucose 90 Calcium 8.3 L Liver Function 12/08/16 Range/Units 02:32 Total Bilirubin 0.5 (0.2-1.2) mg/dL AST 19 (5-34) Units/L ALT 16 (0-55) Units/L Alkaline Phosphatase 132 H (38-126) Units/L Albumin 2.6 L (3.5-5.0) g/dL Consult Discharge Plan - Plan [facility]errals: [facility] [Primary Care Provider] -
[2016-12-08] MEDS: *HR* FentaNYL PATCH 25 MCG PATCH TD SCH (17:12)
[2016-12-08] MEDS: Azithromycin 500 MG in D5% in Water 250 ML IVPB SCH (17:13)
[2016-12-09] MEDS: *HR* HYDROmorphone (PF) 1 MG/ML SYRINGE IVP PRN ×3 (03:00→12:34)
[2016-12-09 04:15] LABS: Basophils # 0.1 K/mcL (0.0-0.2); Basophils % 0.4 %; Eosinophils # 0.1 K/mcL (0.0-0.6); Eosinophils % 0.4 %; Hematocrit 33.6 % (37.5-50.1); Hemoglobin 11.2 g/dL (12.9-16.9); Immature Granulocytes % 1.8 % (0-4); Lymphocytes # 1.5 K/mcL (0.6-4.6); Lymphocytes % 6.6 %; Mean Corpuscular HGB Conc 33.3 g/dL (31.6-35.5); Mean Corpuscular Hemoglobin 27.7 pg (28.0-33.3); Mean Corpuscular Volume 83.2 fL (83.0-100.0); Mean Platelet Volume 10.8 fL (9.4-12.4); Monocytes # 1.1 K/mcL (0.0-1.3); Monocytes % 4.9 %; Neutrophils # 19.2 K/mcL (1.6-8.9); Platelet Count 137 K/mcL (140-400); Red Blood Count 4.04 M/mcL (4.19-5.50); Red Cell Distribution Width 12.7 % (11.5-14.5); Segmented Neutrophils % 85.9 %
[2016-12-09 04:30] LABS: BUN/Creatinine Ratio 17 (6-26); Blood Urea Nitrogen 11 mg/dL (8-26); Calcium 8.2 mg/dL (8.6-10.8); Carbon Dioxide 30 mEq/L (19-29); Chloride 98 mEq/L (98-109); Glucose 97 mg/dL (70-99); Osmolality,Calculated 279 (280-300); Potassium 3.3 mEq/L (3.5-4.5); Sodium 135 mEq/L (136-145); eGFR For African Americans > 60 (> 60); eGFR For Non-African Americans > 60 (> 60)
[2016-12-09 04:37] LABS: Alanine Aminotransferase 16 Units/L (0-55); Albumin 2.5 g/dL (3.5-5.0); Albumin/Globulin Ratio 0.9 (1.1-2.2); Alkaline Phosphatase 214 Units/L (38-126); Aspartate Amino Transferase 20 Units/L (5-34); BUN/Creatinine Ratio 15 (6-26); Bilirubin,Total 0.4 mg/dL (0.2-1.2); Blood Urea Nitrogen 10 mg/dL (8-26); Calcium 8.2 mg/dL (8.6-10.8); Carbon Dioxide 29 mEq/L (19-29); Chloride 99 mEq/L (98-109); Globulin 2.8 g/dL (2.4-3.5); Glucose 88 mg/dL (70-99); Osmolality,Calculated 278 (280-300); Potassium 3.3 mEq/L (3.5-4.5); Sodium 135 mEq/L (136-145); Total Protein 5.3 g/dL (6.0-8.3); eGFR For African Americans > 60 (> 60); eGFR For Non-African Americans > 60 (> 60)
[2016-12-09] MEDS: *HR* OxyCODONE Immed Rel 5 MG TABLET GTUBE PRN ×5 (05:08→23:24)
[2016-12-09] MEDS: *HR* OxyCODONE Immed Rel 15 MG TABLET GTUBE PRN ×5 (05:09→23:24)
[2016-12-09 05:10] LABS: Platelet Estimate Slight Decrease (Normal)
[2016-12-09 05:11] LABS: Schistocytes 1+ (Not Present)
[2016-12-09 05:15] LABS: Reactive Lymphocytes Present (Not Present); Toxic Granulation Present (Not Present)
[2016-12-09] MEDS: *HR* Heparin 5,000 UNIT/ML VIAL SQ SCH ×3 (05:16→20:03)
[2016-12-09] MEDS: Pantoprazole 40 MG VIAL IVP SCH (08:10)
--- NOTE | 2016-12-09 10:50 | Internal Med Progress Note ---
<ArsenioJunior - Last Filed: 12/09/16 16:09> Date of Encounter: 12/09/16 Time of Encounter: 10:45 - Assessment and plan (1) Nausea and vomiting Current Visit: Yes Status: Acute Assessment and plan: Improving with medications. Likely secondary to chemotherapy - first dose on CT abd/pelvis - moderate amount of stool, but no acute findings Leukocystosis improving with bandemia - afebrile, normotensive. Likely related to chemotherapy, but will continue to monitor PEG in place - clean, dry, no erythema Plan: IV hydration, reglan, zofran, add compazine Oncology consulted - appreciate recommendations - plan for radiation today at 1300 Nutrition consulted - appreciate recommendations - able to tolerate cream of wheat this AM Discussed possible discharge but the pt and I agree that due to his weakness and pain he will likely need to stay in the hospital overnight at least one more day Qualifiers: Vomiting type: unspecified Vomiting Intractability: intractable Qualified Code(s): R11.2 - Nausea with vomiting, unspecified (2) 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 But no metastasis to the chest First dose of chemotherapy 12/02/16 - cisplatin 100 mg per meter square day 1, 22, 43. Neulasta day 2 Oncology consulted - appreciate recommendations - radiation treatment today at 1300 (3) Bronchiolitis Current Visit: Yes Status: Acute Assessment and plan: CT at [place]: infectious bronchiolitis. Dry cough and leukocytosis - received 5 days of azithromycin. Afebrile, normotensive Discontinue antibiotics (4) Hypokalemia Current Visit: Yes Status: Acute Assessment and plan: K 3.3 this AM. Mag 1.8. Replace K and monitor. - Subjective Interval history: Pt reports that he is feeling better and his pain control is improving. Still feels fatigued and weak, but much more talkative than previous assessments. N/V continues to improve. Denies fever, chills, chest pain, dyspnea, abdominal pain , diarrhea, constipation, dysuria, or leg pain/edema. - Constitutional Vitals: Temp Pulse Resp BP Pulse Ox 97.6 F 83 16 108/69 96 12/09/16 07:27 12/09/16 07:27 12/09/16 07:27 12/09/16 07:27 12/09/16 07:27 General appearance: Present: cachectic, mild distress, A&O X 3, loss of weight, answers questions appropriately - Head Head exam: Present: atraumatic, normocephalic - Eye Eye exam: Present: conjuntiva pink, sclera anicteric - ENT ENT exam: Present: mucous membranes moist - Neck Neck exam general surgery: Present: supple, trachea midline. Absent: lymphadenopathy - Respiratory Respiratory exam: Present: CTAB. Absent: accessory muscle use, rales, rhonchi, wheezes - Cardiovascular Cardiovascular exam: Present: RRR, +S1, +S2. Absent: diastolic murmur, systolic murmur - GI/Abdominal GI/Abdominal exam: Present: normal bowel sounds, soft, no peritoneal signs. Absent: distended, tenderness - Extremities Exam Extremities exam: Present: warm, radial pulses palpable and symmetrical. Absent : calf tenderness, cyanotic, pedal edema - Neurological Exam Neurological exam: Present: CN II-XII intact, oriented X3, no focal deficits. Absent: facial droop, speech deficit - Skin Skin exam: Present: dry, intact Internal Medicine: Result - Labs CBC & Chem 7: 12/09/16 02:58 12/09/16 02:58 Labs: Short CBC 12/09/16 Range/Units 02:58 WBC 22.4 H (4.3-11.1) K/mcL Hgb 11.2 L (12.9-16.9) g/dL Hct 33.6 L (37.5-50.1) % Plt Count 137 L (140-400) K/mcL Neutrophils # 19.2 H (1.6-8.9) K/mcL BMP 12/09/16 12/09/16 02:58 02:58 Sodium 135 L 135 L Potassium 3.3 L 3.3 L Chloride 98 99 Carbon Dioxide 30 H 29 BUN 11 10 Creatinine 0.64 L 0.66 L Glucose 97 88 Calcium 8.2 L 8.2 L Liver Function 12/09/16 Range/Units 02:58 Total Bilirubin 0.4 (0.2-1.2) mg/dL AST 20 (5-34) Units/L ALT 16 (0-55) Units/L Alkaline Phosphatase 214 H (38-126) Units/L Albumin 2.5 L (3.5-5.0) g/dL Consult Discharge Plan - Plan [facility]errals: [facility] [Primary Care Provider] - <Johnnie Rodriges - Last Filed: 12/09/16 17:42> Date of Encounter: 12/09/16 - Assessment and plan (1) Nausea and vomiting Current Visit: Yes Status: Acute Qualifiers: Vomiting type: unspecified Vomiting Intractability: intractable Qualified Code(s): R11.2 - Nausea with vomiting, unspecified (2) 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 (3) Hypokalemia Current Visit: Yes Status: Acute - Constitutional Vitals: Temp Pulse Resp BP Pulse Ox 98.2 F 51 12 127/70 96 12/09/16 15:07 12/09/16 15:07 12/09/16 15:07 12/09/16 15:07 12/09/16 15:07 Internal Medicine: Result - Labs CBC & Chem 7: 12/09/16 02:58 12/09/16 02:58 Labs: Short CBC 12/09/16 Range/Units 02:58 WBC 22.4 H (4.3-11.1) K/mcL Hgb 11.2 L (12.9-16.9) g/dL Hct 33.6 L (37.5-50.1) % Plt Count 137 L (140-400) K/mcL Neutrophils # 19.2 H (1.6-8.9) K/mcL BMP 12/09/16 12/09/16 02:58 02:58 Sodium 135 L 135 L Potassium 3.3 L 3.3 L Chloride 98 99 Carbon Dioxide 30 H 29 BUN 11 10 Creatinine 0.64 L 0.66 L Glucose 97 88 Calcium 8.2 L 8.2 L Liver Function 12/09/16 Range/Units 02:58 Total Bilirubin 0.4 (0.2-1.2) mg/dL AST 20 (5-34) Units/L ALT 16 (0-55) Units/L Alkaline Phosphatase 214 H (38-126) Units/L Albumin 2.5 L (3.5-5.0) g/dL - Attending Attestation I examined this patient and my medical decision-making was reviewed with the Resident Physician. I agree with the documented findings, disposition and treatment plan as described except to the extent set forth below. SCC of left tonsil here with N/V after first tx of chemo on 12/02. S/p radiation therapy today. Leukocytosis improves. Hypokalemia, replaced. Home soon.
[2016-12-09] MEDS ORDERED: Potassium Chloride Elixir 20 MEQ/15 ML UDC GTUBE ONE (10:54)
[2016-12-09] MEDS: Prochlorperazine 10 MG/2 ML VIAL IVP PRN (12:33)
[2016-12-09] MEDS: Docusate Oral Soln 100 MG/10 ML UDC GTUBE SCH ×2 (15:00→20:03)
[2016-12-10] MEDS: *HR* Heparin 5,000 UNIT/ML VIAL SQ SCH ×3 (04:39→20:36)
[2016-12-10] MEDS: *HR* OxyCODONE Immed Rel 5 MG TABLET GTUBE PRN ×5 (04:40→23:30)
[2016-12-10] MEDS: *HR* OxyCODONE Immed Rel 15 MG TABLET GTUBE PRN ×5 (04:40→23:29)
[2016-12-10 06:13] LABS: Hematocrit 32.4 % (37.5-50.1); Hemoglobin 10.6 g/dL (12.9-16.9); Mean Corpuscular HGB Conc 32.7 g/dL (31.6-35.5); Mean Corpuscular Hemoglobin 27.5 pg (28.0-33.3); Mean Corpuscular Volume 84.2 fL (83.0-100.0); Mean Platelet Volume 11.4 fL (9.4-12.4); Platelet Count 138 K/mcL (140-400); Red Blood Count 3.85 M/mcL (4.19-5.50); Red Cell Distribution Width 13.1 % (11.5-14.5)
[2016-12-10 06:20] LABS: BUN/Creatinine Ratio 13 (6-26); Blood Urea Nitrogen 8 mg/dL (8-26); Calcium 8.4 mg/dL (8.6-10.8); Carbon Dioxide 31 mEq/L (19-29); Chloride 99 mEq/L (98-109); Glucose 100 mg/dL (70-99); Osmolality,Calculated 278 (280-300); Potassium 3.7 mEq/L (3.5-4.5); Sodium 135 mEq/L (136-145); eGFR For African Americans > 60 (> 60); eGFR For Non-African Americans > 60 (> 60)
[2016-12-10] MEDS: Docusate Oral Soln 100 MG/10 ML UDC GTUBE SCH ×2 (08:58→20:56)
[2016-12-10] MEDS: Pantoprazole 40 MG VIAL IVP SCH (08:59)
--- NOTE | 2016-12-10 09:38 | Oncology Inp Consult Note ---
Date of Encounter: 12/10/16 Time of Encounter: 18:00 Assessment and Plan (1) Squamous cell carcinoma of left tonsil Status: Chronic Assessment and plan: Started treatment with concurrent chemoradiation 12/02/2016. He was hospitalized immediately. He is very sensitive to cisplatin From cycle 2 of May reduce cisplatin to 60 mg/m. We will also keep him on steroids Decadron 4 mg twice a day for 3-5 days after chemotherapy Discussed with Dr. Rehman. Radiation on hold as well. We will resume radiation as soon as his better He had elevated neutrophil count from Neulasta. That is trending down Afebrile. Wound cultures from PEG tube site is negative - Data of Consult Patient: known to practice within the last 3 years Requesting Physician: Alcides Sanders DO Primary Care Provider: [facility] [place] - Consult Narrative Reason for consult: Chemotherapy-induced nausea vomiting History of present illness: Mr. Cuello is a 66 year old male hospitalized with intractable nausea vomiting. He had a delay in treatment for tonsillar cancer because of her dental appointment. Finally started concurrent chemoradiation 12/02/2016. But after first dose of cisplatin developed extensive nausea vomiting dehydration and hospitalized. He has elevated likely from Neulasta. She is improving with conservative management and hydration. Oncological history Mr. Cuello is from [facility] Pain and soreness in the left tonsil area. On 05/06/16 he underwent a direct laryngoscopy with biopsy of the left tonsil lesion. Laryngoscopy revealed a 2 cm lesion superficial to palpitation involving the left tonsillar fossa. Biopsy of this lesion revealed invasive moderately differentiated squamous cell carcinoma, with immunohistochemical staining for p16 being negative. Pathology report reviewed, will be scanned into the system He does have poor dentition and he has a cavity in one of the left upper premolars. He has all the teeth removed beginning of November 2016 Had massive weight loss. Lost from around 150 pounds to about 115 pounds . He had a PEG tube placement by Dr. Tabor 09/18/2016. EGD showed mild inflammation in the duodenum and biopsy showed inflammation Medical imaging: PET Scan on 06/26/16 shows intense metabolic activity loaclizing to the left tonsil concerning for malignancy. metabolic activity associated with level IIa and level IIb cervical lymph nodes. A PET scan 11/20/2016 showed local extension from tonsillar area and to parapharyngeal space and then extension into the left neck as well to more lymph nodes. But no metastasis to the chest Treatment recommendation: Treatment intent curative Concurrent chemoradiation Chemotherapy single agent cisplatin 100 mg per meter square day 1, 22, 43. Neulasta day [address] Rehman 08/02/2016 and the plan is to give 70 hastings and 35 fraction with concurrent chemotherapy Normal creatinine around 0.8. Past medical history: Arthritis History of tobacco abuse in the past quit several years ago History of alcohol abuse when he was young, but currently only occasional wine Interval History: PEG tube site infection. His tenderness and mild low discharge for 2 weeks Past Med Surg Social Fam HX - Past Medical History Medical history: arthritis, cancer (Squamous cell carcinoma of the left tonsil) Psychiatric history: no psych history - Past Surgical History Surgical History: other (Left tonsillectomy, PEG tube placement) - Social History Smoking Status: Former smoker (Quit smoking about 20 years ago) Smokeless Tobacco Status: No Alcohol use: none (Quit alcohol about 20 years ago) Drug use: marijuana - Family History Mother Hx Family Cancer: Yes (Lung and cervical cancer) Medications and Allergies Lactose-Reduced Food [Ensure Plus] 1 bottle PO TID #90 can 06/27/16 [Rx] Dicyclomine [Bentyl] 10 mg PO QID 08/02/16 [History] OxyCODONE Oral Soln [OxyCODONE ORAL SOLN] 50 mg PO Q4H PRN 08/02/16 [History] Promethazine [Phenergan] 12.5 mg PO Q6HR PRN 08/02/16 [History] Omeprazole [PriLOSEC] 20 mg PO DAILY #30 cap 08/20/16 [Rx] Stomatitis Mixture 5 ml PO Q4H PRN #240 mls 08/20/16 [Rx] Fentanyl [Duragesic] 1 each TD Q3D 11/28/16 [History] FentaNYL PATCH [Duragesic] 25 mcg TD Q72H 12/05/16 [History] 3 Allergy/AdvReac Type Severity Reaction Status Date / Time codeine AdvReac Rash Verified 11/28/16 08:22 phenylbutazone AdvReac Rash Verified 11/28/16 08:22 [From Butazolidin] Review of systems: No chest pain or shortness of breath. Nausea and vomiting but the main complaints Oncology - Exam - Constitutional Vitals: Temp Pulse Resp BP Pulse Ox 97.7 F 52 14 115/65 98 12/10/16 07:26 12/10/16 07:26 12/10/16 07:26 12/10/16 07:26 12/10/16 07:26 Exam: GENERAL: Alert and oriented, mild deconditioning Mental Status: Affect appropriate for circumstances HEENT: Sclerae anicteric. No mucositis or thrush. No other oral or pharyngeal lesions or erythema. Skin: No rashes or petechiae. No evidence of skin malignancy Lymph nodes: No cervical, supraclavicular, axillary, or inguinal adenopathy. Lungs: Air entry normal with normal breath sounds. No rhonchi or wheezing Cardiovascular: Regular rate and rhythm. No skipped beats Abdomen: Soft, nontender; no organomegaly or masses palpable. PEG tube in place with some discharge surrounding PEG tube site insertion Extremities: No edema. No calf swelling or tenderness. No joint deformity. Neurologic: Alert, cranial nerves II-XII intact; normal gait; no focal weakness or sensory abnormalities Oncology - Results Labs: Short CBC 12/10/16 Range/Units 05:12 WBC 14.7 H (4.3-11.1) K/mcL Hgb 10.6 L (12.9-16.9) g/dL Hct 32.4 L (37.5-50.1) % Plt Count 138 L (140-400) K/mcL BMP 12/10/16 05:12 Sodium 135 L Potassium 3.7 Chloride 99 Carbon Dioxide 31 H BUN 8 Creatinine 0.63 L Glucose 100 H Calcium 8.4 L Consult Discharge Plan - Plan [facility]errals: [facility] [Primary Care Provider] -
[2016-12-10] MEDS: Ondansetron ODT 4 MG TAB.RAPDIS SL PRN (10:17)
--- NOTE | 2016-12-10 14:38 | Internal Med Progress Note ---
<ArsenioJunior - Last Filed: 12/10/16 15:59> Date of Encounter: 12/10/16 Time of Encounter: 14:34 - Assessment and plan (1) Nausea and vomiting Current Visit: Yes Status: Acute Assessment and plan: Improving with medications. Likely secondary to chemotherapy - first dose on CT abd/pelvis - moderate amount of stool, but no acute findings Leukocystosis improving - afebrile, normotensive. 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 But no metastasis to the chest First dose of chemotherapy 12/02/16 - cisplatin 100 mg per meter square day 1, 22, 43. Neulasta day 2 Oncology consulted - appreciate recommendations (3) Bronchiolitis Current Visit: Yes Status: Acute Assessment and plan: CT at [place]: infectious bronchiolitis. Dry cough and leukocytosis - received 5 days of azithromycin. Afebrile, normotensive Discontinued antibiotics (4) Hypokalemia Current Visit: Yes Status: Acute Assessment and plan: K 3.7 this AM. Monitor and replace as needed. - Subjective Interval history: Pt reports that he is feeling better and his pain control is improving. Still feels fatigued and weak. N/V continues to improve and he is tolerating PO intake better. Denies fever, chills, chest pain, dyspnea, abdominal pain, diarrhea, constipation, dysuria, or leg pain/edema. - Constitutional Vitals: Temp Pulse Resp BP Pulse Ox 97.7 F 56 12 129/63 99 12/10/16 09:55 12/10/16 09:55 12/10/16 09:55 12/10/16 09:55 12/10/16 09:55 General appearance: Present: cachectic, mild distress, A&O X 3, loss of weight, answers questions appropriately - Head Head exam: Present: atraumatic, normocephalic - Eye Eye exam: Present: conjuntiva pink, sclera anicteric - Neck Neck exam general surgery: Present: supple, trachea midline. Absent: lymphadenopathy - Respiratory Respiratory exam: Present: CTAB. Absent: accessory muscle use, rales, rhonchi, wheezes - Cardiovascular Cardiovascular exam: Present: RRR, +S1, +S2. Absent: diastolic murmur, systolic murmur - GI/Abdominal GI/Abdominal exam: Present: normal bowel sounds, soft, no peritoneal signs. Absent: distended, tenderness - Extremities Exam Extremities exam: Present: warm, radial pulses palpable and symmetrical. Absent : calf tenderness, cyanotic, pedal edema - Neurological Exam Neurological exam: Present: CN II-XII intact, oriented X3, no focal deficits. Absent: facial droop, speech deficit - Skin Skin exam: Present: dry, intact Internal Medicine: Result - Labs CBC & Chem 7: 12/10/16 05:12 12/10/16 05:12 Labs: Short CBC 12/10/16 Range/Units 05:12 WBC 14.7 H (4.3-11.1) K/mcL Hgb 10.6 L (12.9-16.9) g/dL Hct 32.4 L (37.5-50.1) % Plt Count 138 L (140-400) K/mcL BMP 12/10/16 05:12 Sodium 135 L Potassium 3.7 Chloride 99 Carbon Dioxide 31 H BUN 8 Creatinine 0.63 L Glucose 100 H Calcium 8.4 L Consult Discharge Plan - Plan Instructions: Mouth Care for the Cancer Patient (DC), Mouth Care for the Cancer Patient (GEN) [facility] Provider[facility] - <Alcides Sanders - Last Filed: 12/10/16 18:55> Date of Encounter: 12/10/16 - Assessment and plan (1) Hypokalemia Current Visit: Yes Status: Acute (2) 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 (3) Bronchiolitis Current Visit: Yes Status: Acute (4) Nausea and vomiting Current Visit: Yes Status: Acute Qualifiers: Vomiting type: unspecified Vomiting Intractability: intractable Qualified Code(s): R11.2 - Nausea with vomiting, unspecified (5) PEG (percutaneous endoscopic gastrostomy) status Current Visit: Yes Status: Acute - Constitutional Vitals: Temp Pulse Resp BP Pulse Ox 97.6 F 54 12 116/62 98 12/10/16 15:42 12/10/16 15:42 12/10/16 15:42 12/10/16 15:42 12/10/16 15:42 Internal Medicine: Result - Labs CBC & Chem 7: 12/10/16 05:12 12/10/16 05:12 Labs: Short CBC 12/10/16 Range/Units 05:12 WBC 14.7 H (4.3-11.1) K/mcL Hgb 10.6 L (12.9-16.9) g/dL Hct 32.4 L (37.5-50.1) % Plt Count 138 L (140-400) K/mcL BMP 12/10/16 05:12 Sodium 135 L Potassium 3.7 Chloride 99 Carbon Dioxide 31 H BUN 8 Creatinine 0.63 L Glucose 100 H Calcium 8.4 L - Attending Attestation I examined this patient and my medical decision-making was reviewed with the Resident Physician on 12/10/16. I agree with the documented findings, disposition and treatment plan as described except to the extent set forth below. Mr. Cuello is currently admitted for tonsillar cancer. He remains moderate to high risk due to potential for worsening symptoms. Mr. Cuello was at radiation today. He is tolerating low tube feed. No fever or chills. Exam alert. Comfortable Heart reg No wheeze Abd soft I/P 1. Tonsillar cancer 2. PEG Further diagnoses and plan as above Plan for d/c tomorrow.
[2016-12-11] MEDS: *HR* OxyCODONE Immed Rel 15 MG TABLET GTUBE PRN ×3 (03:32→12:08)
[2016-12-11] MEDS: *HR* OxyCODONE Immed Rel 5 MG TABLET GTUBE PRN ×3 (03:33→12:09)
[2016-12-11] MEDS: *HR* Heparin 5,000 UNIT/ML VIAL SQ SCH (04:48)
[2016-12-11 05:16] LABS: Hematocrit 31.8 % (37.5-50.1); Hemoglobin 10.4 g/dL (12.9-16.9); Mean Corpuscular HGB Conc 32.7 g/dL (31.6-35.5); Mean Corpuscular Hemoglobin 27.4 pg (28.0-33.3); Mean Corpuscular Volume 83.7 fL (83.0-100.0); Mean Platelet Volume 10.7 fL (9.4-12.4); Platelet Count 118 K/mcL (140-400); Red Cell Distribution Width 13.1 % (11.5-14.5)
[2016-12-11 05:30] LABS: BUN/Creatinine Ratio 12 (6-26); Blood Urea Nitrogen 8 mg/dL (8-26); Calcium 8.7 mg/dL (8.6-10.8); Carbon Dioxide 32 mEq/L (19-29); Chloride 97 mEq/L (98-109); Glucose 89 mg/dL (70-99); Osmolality,Calculated 278 (280-300); Potassium 4.1 mEq/L (3.5-4.5); Sodium 135 mEq/L (136-145); eGFR For African Americans > 60 (> 60); eGFR For Non-African Americans > 60 (> 60)
[2016-12-11 06:44] VITALS: BP 128/55
[2016-12-11] MEDS: Ondansetron ODT 4 MG TAB.RAPDIS SL PRN (08:03)
--- NOTE | 2016-12-11 10:11 | Discharge Summary ---
<Junior Cesar R - Last Filed: 12/11/16 10:05> Date of Encounter: 12/11/16 Time of Encounter: 10:05 - Discharge Diagnosis (1) Nausea and vomiting Priority: Primary Status: Acute Qualifiers: Vomiting type: unspecified Vomiting Intractability: intractable Qualified Code(s): R11.2 - Nausea with vomiting, unspecified (2) Squamous cell carcinoma of left tonsil Priority: Secondary Status: Chronic (3) Bronchiolitis Priority: Secondary Status: Acute (4) Hypokalemia Priority: Secondary Status: Acute - Discharge Medications Prescriptions: Ondansetron ODT [Zofran ODT] 4 mg SL Q4HR PRN #180 tab.rapdis PRN Reason: Nausea And Vomiting Prochlorperazine Maleate [Compazine] 10 mg PO Q6HR PRN #120 tablet PRN Reason: Nausea And Vomiting Docusate [Colace] 100 mg GTUBE BID #30 udc Polyethylene Glycol 3350 [MiraLAX] 17 gm GTUBE DAILY #30 powd.pack Home Medications: Lactose-Reduced Food [Ensure Plus] 1 bottle PO TID #90 can 06/27/16 [Rx] Dicyclomine [Bentyl] 10 mg PO QID 08/02/16 [History] OxyCODONE Oral Soln [OxyCODONE ORAL SOLN] 50 mg PO Q4H PRN 08/02/16 [History] Promethazine [Phenergan] 12.5 mg PO Q6HR PRN 08/02/16 [History] Omeprazole [PriLOSEC] 20 mg PO DAILY #30 cap 08/20/16 [Rx] Stomatitis Mixture 5 ml PO Q4H PRN #240 mls 08/20/16 [Rx] Fentanyl [Duragesic] 1 each TD Q3D 11/28/16 [History] FentaNYL PATCH [Duragesic] 25 mcg TD Q72H 12/05/16 [History] Docusate [Colace] 100 mg GTUBE BID #30 udc 12/11/16 [Rx] Ondansetron ODT [Zofran ODT] 4 mg SL Q4HR PRN #180 tab.rapdis 12/11/16 [Rx] Polyethylene Glycol 3350 [MiraLAX] 17 gm GTUBE DAILY #30 powd.pack 12/11/16 [Rx] Prochlorperazine Maleate [Compazine] 10 mg PO Q6HR PRN #120 tablet 12/11/16 [Rx] Allergies/Adverse Reactions: 3 Allergy/AdvReac Type Severity Reaction Status Date / Time codeine AdvReac Rash Verified 11/28/16 08:22 phenylbutazone AdvReac Rash Verified 11/28/16 08:22 [From Butazolidin] Date of admission: 12/06/16 15:48 [facility] physician[facility] Consults: 12/04/16 15:40 Consult to Nutrition [CONS] Routine Comment: Consulting Provider: NUTRITION Reason for Dietary Consult: TF Start and Manage Consult to Director Employee Communications [CONS] Routine Reason for SW Consult: Helps care for his mother, is concerned about her while he is in hospital. 12/04/16 16:40 Consult to Physical Therapy [CONS] Routine Comment: Evaluate, develop and implement POC Reason for Consult: Generalized weakness 12/04/16 16:41 Consult to Oncology [CONS] Routine Consulting Provider: [facility] Reason for Consult: Left tonsillar squamous cell cancer, on chemoradiation Call Completed: Yes Discharging clinician: Junior Cesar Anticipated date of discharge: 12/11/16 - Patient Status Disposition: Home Health Service Condition: Fair Functional capacity at discharge: independent ambulation Overall status at discharge: patient is progressing back to baseline - Discharge Instructions Instructions: How to Use and Care for Your PEG Tube (DC), External Radiation Therapy (DC), Mouth Care for the Cancer Patient (DC), Mouth Care for the Cancer Patient (GEN) Follow Up With: [place],PCP [Primary Care Provider] - 12/16/16 10:00 am Additional Instructions: Take your medications as prescribed Follow instructions of home health nurses and physical therapy Continue to work on good nutrition to maintain your strength and health Follow-up with your PCP Follow-up with your oncologists Follow-up with your [place] palliative care team Return to the hospital if your symptoms return or worsen - Diet and Activity Activity: increase activity as tolerated Diet: advance to your usual diet Interval History: Pt doing well with no complaints. His N/V is much improved and he feels that he has more strength and energy. Denies chest pain, dyspnea, diarrhea, constipation , dysuria, or leg pain/edema. Hospital course: Mr. Cuello is a 66 year old male with PMH on squamous cell carcinoma of the left tonsil with invasion presented to the hospital with nausea, vomiting, weakness, and fatigue. His symptoms were likely secondary to recently initiating chemotherapy and radiation. During his hospitalization his symptoms improved with nausea and pain medication. Oncology was consulted and he received his radiation treatments while in the hospital. Nutrition was also consulted and worked with him on his nutrition. He is aware that nutrition is very important for him. He was also treated with azithromycin for 5 days for bronchiolitis. He is hemodynamically stable and to be discharged with home health services of nursing and physical therapy. He follows with a palliative care team from the [place] and will continue to work with them as an out-patient. He is to follow-up with his PCP and oncologist as well. - Time Spent with Patient Total time spent providing and/or coordinating discharge services: Greater than 30 minutes - Constitutional Vitals: Temp Pulse Resp BP Pulse Ox 97.6 F 54 12 128/55 98 12/11/16 08:01 12/11/16 08:01 12/11/16 08:01 12/11/16 08:01 12/11/16 08:01 General appearance: Present: cachectic, A&O X 3, no acute distress, loss of weight, answers questions appropriately - Head Head exam: Present: atraumatic, normocephalic - Eye Eye exam: Present: conjuntiva pink, sclera anicteric - Neck Neck exam general surgery: Present: supple, trachea midline. Absent: lymphadenopathy - Respiratory Respiratory exam: Present: CTAB. Absent: accessory muscle use, rales, rhonchi, wheezes - Cardiovascular Cardiovascular exam: Present: RRR, +S1, +S2. Absent: diastolic murmur, systolic murmur - GI/Abdominal GI/Abdominal exam: Present: normal bowel sounds, soft, no peritoneal signs. Absent: distended, tenderness - Extremities Exam Extremities exam: Present: warm, radial pulses palpable and symmetrical. Absent : calf tenderness, cyanotic, pedal edema - Neurological Exam Neurological exam: Present: CN II-XII intact, oriented X3, no focal deficits. Absent: facial droop, speech deficit - Skin Skin exam: Present: dry, intact <Alcides Sanders - Last Filed: 12/11/16 17:47> Date of Encounter: 12/11/16 - Discharge Diagnosis (1) Nausea and vomiting Status: Acute Qualifiers: Vomiting type: cyclical vomiting Vomiting Intractability: intractable Qualified Code(s): G43.A1 - Cyclical vomiting, intractable (2) Hypokalemia Status: Resolved (3) Squamous cell carcinoma of left tonsil Status: Chronic (4) Bronchiolitis Status: Acute (5) PEG (percutaneous endoscopic gastrostomy) status Priority: Secondary Status: Chronic (6) Severe protein-calorie malnutrition Priority: Secondary Status: Chronic Date of admission: 12/06/16 15:48 [facility] physician[facility] Consults: 12/04/16 15:40 Consult to Nutrition [CONS] Routine Comment: Consulting Provider: NUTRITION Reason for Dietary Consult: TF Start and Manage Consult to Director Employee Communications [CONS] Routine Reason for SW Consult: Helps care for his mother, is concerned about her while he is in hospital. 12/04/16 16:40 Consult to Physical Therapy [CONS] Routine Comment: Evaluate, develop and implement POC Reason for Consult: Generalized weakness 12/04/16 16:41 Consult to Oncology [CONS] Routine Consulting Provider: [facility] Reason for Consult: Left tonsillar squamous cell cancer, on chemoradiation Call Completed: Yes Hospital course: Mr. Cuello is a 66 year old male - Time Spent with Patient Total time spent providing and/or coordinating discharge services: 39min - Constitutional Vitals: Temp Pulse Resp BP Pulse Ox 97.6 F 54 12 128/55 98 12/11/16 08:01 12/11/16 08:01 12/11/16 08:01 12/11/16 08:01 12/11/16 08:01 - Attending Attestation I examined this patient and my medical decision-making was reviewed with the Resident Physician on 12/11/16. I agree with the documented findings, disposition and treatment plan as described except to the extent set forth below. Mr Cuello has been admitted due to squamous cell CA of tonsil. He has begun radiation. He is now afebrile with stable vitals and is ready for discharge home. Exam Alert. Comfortable Heart reg No wheeze Abd soft Plan D/C home today Follow up with oncology.
--- NOTE | 2016-12-11 10:24 | Physician Discharge Referral ---
Home Health/Hosp Referral Info Transfer to: Home Health Provider in Charge Post Discharge: PCP (and [place] palliative care team) - Diagnosis (1) Nausea and vomiting Priority: Primary Status: Acute (2) Squamous cell carcinoma of left tonsil Priority: Secondary Status: Chronic (3) Bronchiolitis Priority: Secondary Status: Acute (4) Hypokalemia Priority: Secondary Status: Acute - Respiratory Orders Smoking Cessation: Smoking cessation has been advised. For more information, call the [place] Tobacco Quit Line at 6-902-HAIL-NOW. - Diet/Nutrition Diet/Nutrition: List: Cream of wheat, pudding, soft, liquid and tube feeding - Activity Activity Orders: Ambulate - Services Needed Following services are medically necessary services: Nursing, Physical Therapy - Transfer Medications Prescriptions: Ondansetron ODT [Zofran ODT] 4 mg SL Q4HR PRN #180 tab.rapdis PRN Reason: Nausea And Vomiting Prochlorperazine Maleate [Compazine] 10 mg PO Q6HR PRN #120 tablet PRN Reason: Nausea And Vomiting Docusate [Colace] 100 mg GTUBE BID #30 udc Polyethylene Glycol 3350 [MiraLAX] 17 gm GTUBE DAILY #30 powd.pack Home Medications: Lactose-Reduced Food [Ensure Plus] 1 bottle PO TID #90 can 06/27/16 [Rx] Dicyclomine [Bentyl] 10 mg PO QID 08/02/16 [History] OxyCODONE Oral Soln [OxyCODONE ORAL SOLN] 50 mg PO Q4H PRN 08/02/16 [History] Promethazine [Phenergan] 12.5 mg PO Q6HR PRN 08/02/16 [History] Omeprazole [PriLOSEC] 20 mg PO DAILY #30 cap 08/20/16 [Rx] Stomatitis Mixture 5 ml PO Q4H PRN #240 mls 08/20/16 [Rx] Fentanyl [Duragesic] 1 each TD Q3D 11/28/16 [History] FentaNYL PATCH [Duragesic] 25 mcg TD Q72H 12/05/16 [History] Docusate [Colace] 100 mg GTUBE BID #30 udc 12/11/16 [Rx] Ondansetron ODT [Zofran ODT] 4 mg SL Q4HR PRN #180 tab.rapdis 12/11/16 [Rx] Polyethylene Glycol 3350 [MiraLAX] 17 gm GTUBE DAILY #30 powd.pack 12/11/16 [Rx] Prochlorperazine Maleate [Compazine] 10 mg PO Q6HR PRN #120 tablet 12/11/16 [Rx] Allergies/Adverse Reactions: 3 Allergy/AdvReac Type Severity Reaction Status Date / Time codeine AdvReac Rash Verified 11/28/16 08:22 phenylbutazone AdvReac Rash Verified 11/28/16 08:22 [From Butazolidin] Certification: Further, I certify that my clinical findings support that this patient is homebound (i.e. absences from home require considerable and taxing effort and are for medical reasons or mu-ism services or infrequently or short duration when for other reasons) because: Homebound Reason: Leaving home requires considerable and taxing effort due to condition Attestation: My signature below is to certify that this patient is under my care and that I, or nurse practitioner, or a physician's physician assistant surgery working with me, has a face-to -face encounter with this patient.
[2016-12-11] MEDS: Docusate Oral Soln 100 MG/10 ML UDC GTUBE SCH (10:59)
== END 2016-12-11 12:45 | disposition home health service (06) | DRG 146 ==
LOC: 2NENU → SUATTDRO 12-06 15:48
PROVIDERS: ADMIT Internal Medicine; ATTEND Internal Medicine